=== PATIENT | female | born 1960 | race Caucasian/White ===

== ENCOUNTER 2021-04-06 19:42 | Emergency (ER) | payer BC, SELFPAY ==
[2021-04-06 19:53] VITALS: BP 141/73; PULSE 73; RESP 18; TEMP 36.6; O2SAT 98; BMI 22.9
[2021-04-06 20:15] VITALS: BP 145/75; PULSE 70; RESP 17; TEMP 36.8; O2SAT 98
[2021-04-06 20:45] VITALS: BP 153/71; PULSE 63; RESP 17; TEMP 36.8; O2SAT 98
--- NOTE | 2021-04-06 21:40 | HMH.EDGENADL ---
ED Disposition Clinical Impression: Back pain Qualifiers: Back pain location: low back pain Chronicity: acute Back pain laterality: right Sciatica presence: with sciatica Sciatica laterality: sciatica of right side Qualified Code(s): M54.41 - Lumbago with sciatica, right side Disposition: Home, Self-Care Condition on Discharge: Good Additional Instructions: Take the naproxen and muscle relaxers as prescribed by your PCP. Return if you develop the inability to walk, loss of bowel or bladder control, numbness or any other concerns. Follow up with your PCP. Your ultrasound in the ED was negative for blood clot in your leg. Referrals: Phill Barron [Primary Care Provider] - - Critical Care Critical Care Time: No Attestation: On 04/06/21, the high probability of a clinically significant, sudden or life threatening deterioration of the following system(s) required my full and direct attention, intervention and personal management. The time I documented below is in addition to time spent performing reported procedures but includes the following listed in this critical care notation. Medical Decision Making - Medical Records Medical records reviewed: Yes: I reviewed the patient's medical records. - [place] Inquiry Pt receiving controlled substance: No Vital Signs: 04/06/21 19:53 Temperature 97.8 F Temperature Source Oral Pulse Rate [Right Brachial] 73 Respiratory Rate 18 Blood Pressure [Right Arm] 141/73 H Blood Pressure Mean [Right Arm] 95 Blood Pressure Source [Right Arm] Automatic Cuff Blood Pressure Position [Right Arm] Sitting 02 Sat by Pulse Oximetry 98 Oxygen Delivery Method Room Air Orders (Tests/Meds): ED MEDICATIONS Discontinued Medications Generic Name Dose Route Start Last Admin Trade Name Liat PRN Reason Stop Dose Admin Hydrocodone Bitart/Acetaminophen 1 tab 04/06/21 20:29 04/06/21 21:25 Hydrocodone/Apap 5/325 Mg Tablet PO 04/06/21 20:30 1 tab ONCE ONE Administration Ketorolac Tromethamine 15 mg 04/06/21 20:29 04/06/21 21:25 Ketorolac 30mg/Ml Vial IV 04/06/21 20:30 15 mg ONCE ONE Administration Medical Decision Narrative: The patient is a 60 year old female who presents with back pain. The patient is awake, alert, hemodynamically stable, neurologically intact. No red flag symptoms for cauda equina including saddle anesthesia, fever, bowel or bladder incontinence. Abdomen is benign. No trauma, no concern for acute fracture. Low concern for DVT clinically (no risk factors, no swelling or tenderness to the calf on exam, no redness or palpable cord). However 4 point POC US for DVT was performed and showed compressible veins from femoral to popliteal. Patient was given norco 5 mg PO and toradol 15 mg IV for pain. Will have her follow up outpatient with her PCP. General Adult HPI - General Chief complaint: PAIN Stated complaint: severe pain in legs and back Time Seen by Provider: 04/06/21 19:54 Mode of Arrival: Family Vehicle Limitations: No Limitations Description of Symptoms (Recalled from ER Triage Doc. by RN): pt states she was doing some yard work on saturday, and noticed back and leg pain upon awakening. pt having severe pain in rle. pedal pulse, popliteal, dorsal pulses good. vss. skin color wnl. - History of Present Illness HPI narrative: The patient is a 60 year old female who presents to the ED with lower back pain radiating to the right leg. The patient states that she was doing some gardening work in her yard yesterday and developed lower back pain. It radiates down her right leg to her calf. It's worse when she moves or raises her leg. Denies numbness, loss of bowel or bladder control, fever, chest pain, vomiting. No leg swelling. No history of PE/DVT. She was concerned it was a blood clot so she came in. She saw her PCP who gave her naproxen, a muscle relaxer, a steroid shot, and oxycodone prescription. She has not tried the oxycodone yet. - Related Data
[2021-04-06 21:46] VITALS: BP 123/85; PULSE 81; RESP 17; TEMP 36.7; O2SAT 99
[2021-04-06 21:52] VITALS: BP 128/65; PULSE 73; RESP 17; O2SAT 98
== END 2021-04-06 21:54 | disposition home or self-care (01) ==
PROVIDERS: Emergency Provider Emergency Medicine; PCP Pediatrics
DX: M54.41 Lumbago with sciatica, right side (principal); Z88.2 Allergy status to sulfonamides
CPT/HCPCS: 99282

== ENCOUNTER → 2022-09-25 06:45 | Outpatient (CLI) | payer BC, OTHER, SELFPAY ==
--- NOTE | 2022-09-25 06:47 | CA_ITS ---
APPROVED REPORT EXAM: Comprehensive 2D, Doppler, and color-flow Echocardiogram Gauge Operator: Kayce Sherman RVT Ht: 5 ft 5 in Wt: 141lbs BSA: 1.71 BP: 156/97 mmHg Indications: CP 2D Dimensions LVOT 1.95 cm (M/F) 1.5-2.5 M-Mode Dimensions RVDd 2.50 cm (0.9-2.6) LA Diam 2.80 cm (1.9-4.0) LVDd 4.01 cm (3.5-5.7) Ao Diam 2.62 cm (2.0-3.7) LVDs 2.58 cm (3.5-5.7) IVSd 0.86 cm (0.6-1.1) PWd 0.46 cm (0.6-1.1) EF (Teich) 65.80% FS 35.70% EDV (Teich) 70.40 mL TAPSE 1.65 (<1.7) ESV (Teich) 24.10 mL LV Diastology E Decel Time 150.00 (160-240 msec) E/A Ratio 0.8 MED E' 8.70 (< 7 cm/sec) E'/MED E' Ratio 6.34 (>14) LAT E' 8.00 (<10 cm/sec) E/LAT E' Ratio 6.90 (>14) Aortic Valve AO Peak GR. 5.60 mmHg Mitral Valve MV E Max Tc. 55.00 (40-130 cm/s) MV A Velocity 71.00 (40-130 cm/s) E/A Ratio 0.78 MV Decel. Time 150.00 (160-240 ms) MV PHT 44.00 ms Pulmonary Valve PV Peak Velocity 67.00 (50-150 cm/s) Tricuspid Valve TR P. Velocity 258.00 cm/s RAP Estimate 10.00 mmHg RVSP 36.50 mmHg Left Ventricle Left atrium is mildly enlarged, left ventricle normal size mild concentric left ventricular hypertrophy, estimated ejection fraction 55% with no regional wall motion abnormality, grade 1 diastolic dysfunction seen without tissue Doppler evidence of raise left atrial pressure. Right Ventricle Right atrium and right ventricle are normal size and contractility. Aortic Valve Aortic valve is minimally thickened and fibrosed there is no aortic stenosis or aortic insufficiency. Mitral Valve Mitral valve is grossly normal, there is trace mitral regurgitation. Tricuspid Valve Tricuspid valve grossly normal, there is trace tricuspid regurgitation, calculated right ventricular systolic pressure 36 mmHg. Pulmonic Valve Pulmonic valve is poorly visualized. Great Vessels Aortic root is normal size. Inferior vena cava is poorly visualized. Pericardium No significant pericardial effusion noted. Conclusion 1. Mildly enlarged left atrium, normal left ventricular size, mild concentric left ventricular hypertrophy, estimated ejection fraction 55% with no regional wall motion abnormality, grade 1 diastolic dysfunction seen without tissue Doppler evidence of raise left atrial pressure. 2. Trace mitral and tricuspid regurgitation. 3. No significant pericardial effusion noted. 4. Inferior vena cava is poorly visualized. Electronically signed by : Damion River MD 09/25/2022 20:49:45
--- NOTE | 2022-09-25 06:47 | NM_ITS ---
APPROVED REPORT Exam: Nuclear Stress Test Indication: Chest pain Patient Location: Outpatient Stress Tech: Eufemia Francis [place] Tech:Liz Emery, ARRT, RT (R)(N) Ht: 5 ft 5 in Wt: 140 lbs Bra Size: 38C HR: 94 bpm BP: 154/93 mmHg BSA: 1.70 m2 TID: 1.32 BMI: 23.2 History: Chest pain Procedure: Patient exercised on Cayetano protocol 7:46 minutes and sec, resting heart rate 94 bpm, resting blood pressure 154/93 mmHg, with exercise maximum heart rate achived was 210 bpm which is 134 % of the maximum predicted heart rate and blood pressure was 233/103 mmHg. Test was stopped due to SOB. Patient denied any complaint of chest pain. Patient has Good exercise capacity, achieved 10.1 METs of workload on treadmill, the blood pressure response to exercise was Hypertensive. Electrocardiogram Resting electrocardiogram shows sinus rhythm nonspecific ST-T changes, with exercise there is less than 1.[address] segment depression noted from the baseline EKG. The EKG portion of the exercise Myoview was nondiagnostic due to baseline abnormal EKG. Cardiac Stress and Resting SPECT Images: Cardiac Stress and Resting SPECT images were obtained using technetium 99m Myoview 31.5 mCi stress and 10.90 mCi at rest. Gated SPECT for analysis of segmental wall motion and calculation of the ejection fraction also done. Prone images were also obtained. Cardiac stress and resting SPECT images show uniform myocardial activity without segmental perfusion abnormality, computer derived ejection fraction of 65% with no regional wall motion abnormality, right ventricle is normal size and contractility. However there is transient ischemic dilatation of left ventricle 1.32 noted. Conclusion: 1. The EKG portion of the exercise Myoview was nondiagnostic due to baseline abnormal EKG. Patient has good exercise capacity achieved 10.1 METs of workload on treadmill, the blood pressure response to exercise was hypertensive. There was no exercise-induced chest discomfort. 2. No scintigraphic evidence of reversible ischemia seen at this level of exercise, computer derived ejection fraction is 65% with no regional wall motion abnormality, right ventricle is normal size and contractility. There is transient ischemic dilatation of the left ventricle 1.32 noted. 3. Likely normal exercise Myoview study except for hypertensive blood pressure response, transient ischemic dilatation of the left ventricle with no perfusion defect is of unknown significance. Electronically signed by : Damion River MD 09/26/2022 06:38:55
--- NOTE | 2022-09-25 06:47 | CA_ITS ---
APPROVED REPORT Exam: Exercise Treadmill Technologist: Eufemia Francis, Ht: 5 ft 5 in Wt: 141 lbs BSA: 1.71 m2 HR: 80 bpm BP: 183/94 mmHg Rhythm: NSR, fusion beat, ST abn anterolaterally Indications: CP Medical History Medications: AmiTRIPTYINE,,,,, Stress Test Details Test: John HR Resting HR: 94 bpm Max Heart Rate (APMHR): 157.235024 bpm Max HR Achieved: 210 bpm Target HR (85% APMHR): 133.175667 bpm % of APMHR: 133.76 Recovery HR: 139 bpm BP Resting BP: 154/93 mmHg Max BP: 233/103 mmHg Recovery BP: 221.0/109.0 mmHg ECG Resting ECG: NSR, fusion beat, ST abn anterolaterally Clinical Exercise duration: 07:46 min Highest Stage Achieved: Exercise capacity: 10.1 METs Stress ECG Conclusion During john protocol pt exercised total of 7:46 into stage 3. No CP noted. Occasional PVC and PAC. Non diagnostic GXT due to baseline EKG abns. Myoview images reported separately. Test Summary REST . . . . . . . Sitting REST . . . . . . . Standing REST . . . . . . . Standing REST 04:39 0.0 0.0 94 . 154/ 93 . . Stage 1 01:00 10.0 1.7 95 . . . . Stage 1 02:00 10.0 1.7 120 . . . . Stage 1 03:00 10.0 1.7 113 . . . . Stage 2 01:00 12.0 2.5 120 . 178/ 80 . . Stage 2 02:00 12.0 2.5 127 . 178/ 80 . . Stage 2 03:00 12.0 2.5 132 . 194/ 74 . . Stage 3 01:00 14.0 3.4 137 . . . . Stage 3 01:46 14.0 3.4 142 . . . Stop exercise at 07:46 RECOVERY 01:00 0.0 0.0 139 . . . . RECOVERY 02:00 0.0 0.0 126 . 221/109 . . RECOVERY 03:00 0.0 0.0 111 . 221/109 . . RECOVERY 04:00 0.0 0.0 105 . 233/103 . . RECOVERY 05:00 0.0 0.0 106 . 215/ 96 . . RECOVERY 06:00 0.0 0.0 105 . 196/ 91 . . RECOVERY 07:00 0.0 0.0 101 . 185/ 87 . . RECOVERY 08:00 0.0 0.0 98 . 185/ 87 . . RECOVERY 09:00 0.0 0.0 97 . 162/ 87 . . RECOVERY 09:18 0.0 0.0 95 . 162/ 87 . . Electronically signed by : Damion River MD 09/26/2022 06:34:15
--- NOTE | 2022-09-25 08:53 | HMH.ITSHM ---
Current Home Medications as stated by this patient Jayla Bradford or compliance representative dealer. []AMITRIPTYLINE
== END ==
PROVIDERS: PCP Pediatrics; Visit Provider Nurse Practitioner
DX: R07.89 Other chest pain (principal); R94.31 Abnormal electrocardiogram [ECG] [EKG]
CPT/HCPCS: 78452; 93017; 93306; A9500; A9502

== ENCOUNTER 2022-09-27 08:16 | Day surgery (SDC) | payer BC, OTHER, SELFPAY ==
[2022-09-27] VITALS (11 sets, daily range): BP systolic 112–163; BP diastolic 69–93; PULSE 65–82; RESP 16–18; O2SAT 92–99; BMI 23.4
--- NOTE | 2022-09-27 07:10 | IR_ITS ---
APPROVED REPORT Patient Location: Outpatient PROCEDURES Left heart catheterization Left ventriculogram Selective coronary angiogram INDICATION Abnormal Myoview with transient left ventricular dilatation, Abnormal EKG with dynamic EKG changes across the anterior precordium, Angina pectoris Informed consent was obtained prior to the procedure. COMPLICATIONS None Estimated Blood Loss: Less than 10 mls TECHNIQUE One percent lidocaine used to anesthetize the right anterior aspect of the wrist. The right radial artery was accessed via the Seldinger technique. A 6 Ethiopian sheath was placed in the right radial artery. 2.5 mg of verapamil, 800 mcg of nitroglycerin, 1mg Lidocaine and 5000 U Heparin were given through the arterial sheath. The papa catheter was also used to perform left heart catheterization, left ventriculogram and selective coronary angiogram. At the end of the procedure the sheath was removed good hemostasis was achieved using Traclet band, patient was transferred to the postop holding area in stable condition. ANGIOGRAPHIC RESULTS The left main artery Normal The left anterior descending artery There is a large wraparound apex LAD. The proximal portion has a concentric 30 to 40% stenosis with mid vessel 10 to 20% stenoses The circumflex artery Is a large codominant vessel and normal The right coronary artery Codominant normal The DENNY ventriculogram reveals Normal 65% The left ventricular end-diastolic pressure 15 to 20 mmHg IMPRESSION Mild to moderate proximal disease and a large LAD which wraps the apex Normal ejection fraction Mildly elevated LVEDP consistent with diastolic dysfunction PLAN 1. At this point I favor medical management and recommend aggressive risk factor modification which should include an LDL less than 55 to be achieved with high intensity statin. Diet therapy will not provide sufficient LDL reduction to modify the disease process 2. Maximize antianginal medication 3. Daily aspirin therapy 4. Treatment of diastolic dysfunction 5. Close follow-up and manage angina pectoris. If patient continues to experience recalcitrant angina pectoris I would bring her back to the [facility] and proceed with FFR to the LAD with possible percutaneous revascularization. At this point medical management seems most appropriate Electronically signed by : Aiden Elise MD 09/27/2022 10:57:02
[2022-09-27 08:41] LABS: Basophils # 0.1 K/mm3 (0-0.2); Basophils % 0.6 % (0.1-2.0); Eosinophils # 0.1 K/mm3 (0.0-0.4); Eosinophils % 0.9 % (0.1-12.0); Hemoglobin 13.4 g/dL (12.2-16.2); Lymphocytes # 6.5 K/mm3 (0.7-4.5); Lymphocytes % 66.5 % (10-50); Mean Corpuscular HGB Conc 32.7 g/dL (31.8-35.4); Mean Corpuscular Hemoglobin 30.1 pg (27.0-31.2); Mean Platelet Volume 7.5 fl (7.4-10.4); Monocytes # 0.2 K/mm3 (0.1-1.0); Neutrophils % 30.1 % (37.0-80.0); Platelet Count 279 K/mm3 (142-424); Red Blood Count 4.45 M/mm3 (4.20-5.40); Red Cell Distribution Width 13.5 % (11.5-17.5); White Blood Count 9.8 K/mm3 (4.8-10.8)
[2022-09-27 08:52] LABS: MANUAL DIFFERENTIAL MANUAL DIFFERENTIAL (MANUAL DIFF)
[2022-09-27 09:00] LABS: Chloride 103 mmol/L (98-107); Sodium 141 mmol/L (136-145)
[2022-09-27 09:01] LABS: Potassium 4.3 mmoL/L (3.5-5.1)
[2022-09-27 09:04] LABS: Anion Gap 11.3 mEq/L (5-15); Blood Urea Nitrogen 13 mg/dl (7-17); Calcium 9.2 mg/dl (8.4-10.2); Carbon Dioxide 31 mmol/L (22.0-30.0); Creatinine Clearance Estimated 58 mL/min (50-200); Estimated Glomerular Filt Rate 101 ml/min (>60); GFR (African American) 122 ML/MIN (>60); Glucose 96 mg/dl (74-100)
[2022-09-27 09:54] LABS: Lymphocytes % 58 % (10-50); Monocytes % 4 % (2-9); Neutrophils % 38 % (42-76); Total Cells Counted 100
[2022-09-27 09:55] LABS: Platelet Estimate Normal; RBC Morphology Normal
== END 2022-09-27 13:51 | disposition home or self-care (01) ==
PROVIDERS: Nurse Practitioner; PCP Pediatrics; Visit Provider Internal Medicine
DX: R94.31 Abnormal electrocardiogram [ECG] [EKG] (principal); R94.39 Abnormal result of other cardiovascular function study; I25.118 Atherosclerotic heart disease of native coronary artery with other forms of angina pectoris; E78.5 Hyperlipidemia, unspecified
CPT/HCPCS: 36415; 80048; 85007; 85025; 93458; 99152; C1725; C1769; J1644; Q9967

== ENCOUNTER → 2023-04-09 09:09 | Outpatient (CLI) | payer BC, OTHER, SELFPAY ==
[2023-04-09 09:57] LABS: Basophils # 0.1 K/mm3 (0-0.2); Basophils % 0.7 % (0.1-2.0); Eosinophils # 0.1 K/mm3 (0.0-0.4); Eosinophils % 1.6 % (0.1-12.0); Hematocrit 39.4 % (37.0-47.0); Hemoglobin 12.9 g/dL (12.2-16.2); Lymphocytes # 5.5 K/mm3 (0.7-4.5); Lymphocytes % 65.6 % (10-50); Mean Corpuscular HGB Conc 32.8 g/dL (31.8-35.4); Mean Corpuscular Volume 91.5 fl (81-99); Mean Platelet Volume 7.9 fl (7.4-10.4); Monocytes # 0.2 K/mm3 (0.1-1.0); Monocytes % 2.6 % (1.7-9.3); Neutrophils # 2.5 K/mm3 (1.8-7.8); Neutrophils % 29.5 % (37.0-80.0); Platelet Count 247 K/mm3 (142-424); Red Cell Distribution Width 13.5 % (11.5-17.5); White Blood Count 8.4 K/mm3 (4.8-10.8)
[2023-04-09 10:06] LABS: MANUAL DIFFERENTIAL MANUAL DIFFERENTIAL (MANUAL DIFF)
[2023-04-09 10:36] LABS: Eosinophils % 2 % (0-3); Lymphocytes % 62 % (10-50); Monocytes % 6 % (2-9); Neutrophils % 30 % (42-76); Platelet Estimate Normal; RBC Morphology Normal; Total Cells Counted 100
[2023-04-09 10:48] LABS: Alanine Aminotransferase 38 U/L (12-78); Albumin Level 4.3 g/dl (3.5-5.0); Alkaline Phosphatase 97 U/L (38-126); Anion Gap 14.2 mEq/L (5-15); Aspartate Amino Transferase 36 U/L (14-36); Bilirubin,Indirect 0.5 mg/dL (0.0-0.9); Bilirubin,Total 0.5 mg/dl (0.2-1.3); Bilirubin,Unconjugated 0.7 mg/dL (0.0-1.1); Blood Urea Nitrogen 11 mg/dl (7-17); Calcium 8.9 mg/dl (8.4-10.2); Carbon Dioxide 31 mmol/L (22.0-30.0); Chloride 100 mmol/L (98-107); Chol/HDL Ratio 2.5 (1-3.5); Cholesterol 132 mg/dl (140-200); Estimated Glomerular Filt Rate 101 ml/min (>60); GFR (African American) 122 ML/MIN (>60); Glucose 88 mg/dl (74-100); HDL Cholesterol 53 mg/dl (40-60); Magnesium 2.1 mg/dl (1.6-2.3); Potassium 4.2 mmoL/L (3.5-5.1); Sodium 141 mmol/L (136-145); Total Protein,Serum 6.5 g/dl (6.3-8.2); Triglycerides 88 mg/dl (30-150); VLDL Cholesterol 18 mg/dL (0-40)
[2023-04-09 10:59] LABS: Direct LDL Cholesterol 61.78 mg/dL (100-129)
[2023-04-09 11:04] LABS: Free T4 (Free Thyroxine) 0.82 ng/dl (0.78-2.19)
[2023-04-09 11:19] LABS: Thyroid Stimulating Hormone 0.86 uIU/mL (0.465-4.68)
== END ==
PROVIDERS: PCP Pediatrics; Visit Provider Physician Assistant
DX: I25.10 Atherosclerotic heart disease of native coronary artery without angina pectoris (principal); I51.89 Other ill-defined heart diseases; R94.31 Abnormal electrocardiogram [ECG] [EKG]
CPT/HCPCS: 36415; 80048; 80061; 80076; 83735; 84439; 84443; 85007; 85025

== ENCOUNTER 2025-09-24 08:01 | Emergency (ER) | payer MEDICARE, OTHER, SELFPAY ==
[2025-09-24] VITALS (10 sets, daily range): BP systolic 142–203; BP diastolic 96–127; PULSE 67–93; RESP 16–18; TEMP 36.8; O2SAT 97–100; BMI 23.3
--- OUTSIDE RECORDS SUMMARY | 2025-09-24 08:10 | XMS_ITS | Encounter Summary ---
[facility] Address [address] [place] [address] Care Team Providers Care Chip Drier Name Role Phone Phill Barron MD Primary Care Provider [phone] Encounter Details Date Type Department Care Team (Late st Contact Info) Description 07/29/2025 Telephone [facility] [address] [place] [address] [place] [id number] Phill Barron MD [address] [place] [address] Social History Tobacco Use Types Packs/Day Years Used Date Smoking Tobacco: Never Smokeless Tobacco: Never Alcohol Use Standard Drinks/Week Comments Never 0 (1 standard drink = 0.6 oz pur e alcohol) VERY RARE;SOCIAL PHQ-2 Answer Date Recorded Retired PHQ-9: Brief Depression Severity Measure Score 0 04/11/2023 PHQ-2 Answer Date Recorded Patient Health Questionnaire-2 Score 0 12/25/2024 Comments No Sex and Gender Information Value Date Recorded Sex Assigned at Not on file Legal Sex Female 10:15 AM EDT Gender Identity Not on file Sexual Orientation Not on file documented as of this encounter Miscellaneous Notes * Telephone Encounter - Phill Barron MD - 07/29/2025 4:07 PM EDT Patient's blood pressure has been getting a little bit lower in the upper 90s to low 100s range systolic, over the last couple weeks, and she is only taking carvedilol 3.125 mg twice daily. As such recommend stopping the carvedilol, and monitor blood pressure regularly encouraged good hydration. Advise if not improving documented in this encounter Plan of Treatment Not on file documented as of this encounter Visit Diagnoses Not on filedocumented in this encounter Care Teams Chip Drier Relationship Specialty Start Date End Date Phill Barron MD [address] [id number] PCP - General Internal Medicine 06/26/22 documented as of this encounter
--- OUTSIDE RECORDS SUMMARY | 2025-09-24 08:10 | XMS_ITS | Clinical Summary ---
[facility] Address [address] [place] [address] Care Team Providers Care Bundle Wrapper Name Role Phone Phill Barron MD Primary Care Provider [phone] Allergies Active Allergy Reactions Criticality Noted Date Comments Sulfamethoxazole-Trimethoprim Hives Medium 2021 Cephalexin Hives Medium 07/13/2022 Sulfamethoxazole GI Intolerance 10/10/2022 Trimethoprim GI Bleeding 10/10/2022 Medications Vitamin D, Cholecalciferol, 25 MCG (1000 UT) capsuleIndications: Vitamin D deficiency Take 1 capsule by mouth Daily. 90 capsule 1 2 Active aspirin 81 MG EC tablet Take 1 tablet by mouth Daily. Active naproxen (NAPROSYN) 375 MG tabletIndications:C ervicalgia Take 1 tablet by mouth 2 (Two) Times a Day As Needed for Mild Pain. 60 tablet 1 4 Active cetirizine (zyrTEC) 10 MG tablet Take 1 tablet by mouth Daily. 90 tablet 1 5 Active amitriptyline (ELAVIL) 50 MG tabletIndications:T rigeminal neuralgia Take 1 tablet by mouth Every Night. 90 tablet 3 5 Active atorvastatin (LIPITOR) 40 MG tabletIndications:M ixed hyperlipidemia Take 1 tablet by mouth Every Night. 90 tablet 3 5 Active Active Problems Problem Noted Date Diagnosed Date Essential hypertension 12/25/2024 Assessment & Plan (04/14/2025 12:11 PM EDT): Mild increased blood pressure 12/25/2024 verified at home where she was running down the 130s over mid 80s. As such we added carvedilol 3.125 mg twice daily, if needing further blood pressure manage in the future could consider adding DAMIAN inhibitor or ARB, again for cardiovascular benefit. She has done well with blood pressure now good range in the low 120s over upper 70s. Recommend monitoring blood pressure regularly, advise any symptom concern. Reassess at follow-up visits. Assessment & Plan (02/03/2025 12:46 PM EST): Mild increased blood pressure today 12/25/2024 verified at home where she is running down the 130s over mid 80s. As such she could potentially tolerate adding beta-nela in context of cardiovascular history, add carvedilol 3.125 mg twice daily, if needing further blood pressure manage in the future could consider adding DAMIAN inhibitor or ARB, again for cardiovascular benefit. Recommend monitoring blood pressure regularly, advise any symptom concern. Reassess at 3-month follow-up visit. Orders: carvedilol (Coreg) 3.125 MG tablet; Take 1 tablet by mouth 2 (Two) Times a Day With Meals. Spondylolisthesis of cervical region 12/25/2024 Assessment & Plan (04/14/2025 12:09 PM EDT): Please refer to assessment plan under cervicalgia for full details, but 04/03/2024 x-ray of the cervical spine at [facility], revealing moderate to significant multilevel degenerative changes diffusely, and she has a mild retrolisthesis of C6 on C7 transverse with slight shift in alignment. Assessment & Plan (02/03/2025 12:46 PM EST): Please refer to assessment plan under cervicalgia for full details, but 04/03/2024 x-ray of the cervical spine at [facility], revealing moderate to significant multilevel degenerative changes diffusely, and she has a mild retrolisthesis of C6 on C7 transverse with slight shift in alignment. In context of recent catching sensation with extension of the neck lower cervical level, and pain associated despite conservative management we will pursue MRI imaging to clarify as I feel her could be an association between these processes. Management per results and consideration referral to specialist pending those results. Lymphadenitis, acute 04/07/2024 Assessment & Plan (04/21/2024 9:50 AM EDT): Patient had noted a small bump in the right lower neck region last night, unsure if it has been present further. As assessed 04/09/2024, on exam it was consistent with a borderline enlarged lymph node although it is in the supraclavicular region, size is about 3/4 x 1 cm, mobile within the subcutaneous tissues, and patient has no constitutional decline including no night sweats, fevers, chills, unexplained weight loss, headaches, body aches. Plan was initially to monitor for couple weeks, with increased stressors, patient wanted to go ahead and reassess further and we obtained reassuring blood work including normal CBC, ESR, CRP, and EBV and CMV evaluation is negative for acute process, although previous infection noted. Additional chest x-ray negative and ultrasound of the right neck showed a normal variant 6 mm lymph node. Since that time it has decreased in size and essentially resolved. As such no further investigation necessary. Advise any recurrence. Assessment & Plan (04/09/2024 9:48 AM EDT): Patient had noted a small bump in the right lower neck region last night, unsure if it has been present further. On exam it appears to be most consistent with a borderline enlarged lymph node although it is in the supraclavicular region, size is about 3/4 x 1 cm, mobile within the subcutaneous tissues, and patient has no constitutional decline including no night sweats, fevers, chills, unexplained weight loss, headaches, body aches. She has not clearly been ill in the last few weeks, nor has she had any localized skin infection around the area of lymph node. At this time we discussed pros and cons of assessing today or giving this a little further time as this was just noted yesterday. Plan is to monitor this closely over the next couple weeks, and if it is not decreasing in size or if it is getting larger, plan to then obtain some further investigations including laboratory work with CBC, ESR, CRP, and probable mono and CMV evaluation. Additional consideration of chest x-ray and ultrasound the right neck to assess further. Advise any worsening interim. Addendum as of 04/09/2024, patient just preferred to go ahead and do the investigations as noted above and as such they have been ordered. Age-related osteoporosis wit hout current pathological fracture 04/03/2024 Assessment & Plan (02/03/2025 12:46 PM EST): DEXA scan as obtained 01/06/2024 at [facility] reveals bilateral proximal femurs with corresponding T-score of -2.6 which is consistent with osteoporosis which is a 9.4% worsening compared to 05/23/2015. Lumbar spine L1-L4 at T-score of -2.8 also consistent with osteoporosis which is worsening at 5.2% compared to previous in 2014. As such estimated 10-year probability of major osteoporotic fracture 14.7% and 10-year probability hip fracture 3.8%. Based on these findings, recommendation I had recommended to initiate bisphosphonate with alendronate 70 mg weekly. Patient initiated but then did some reading, prefers to hold off on the alendronate using [id number] supplements. Advised if she changes mind for the alendronate, otherwise continue importance of vitamin D and calcium daily. Recheck DEXA scan in approximately January 2026. Assessment & Plan (06/26/2024 11:04 AM EDT): DEXA scan as obtained 01/06/2024 at [facility] reveals bilateral proximal femurs with corresponding T-score of -2.6 which is consistent with osteoporosis which is a 9.4% worsening compared to 05/23/2015. Lumbar spine L1-L4 at T-score of -2.8 also consistent with osteoporosis which is worsening at 5.2% compared to previous in 2014. As such estimated 10-year probability of major osteoporotic fracture 14.7% and 10-year probability hip fracture 3.8%. Based on these findings, recommendation initiate bisphosphonate with alendronate 70 mg weekly. Patient initiated but then did some reading, prefers to hold off on the alendronate using [id number] supplements. Advised if she changes mind for the alendronate, otherwise continue importance of vitamin D and calcium daily. Recheck DEXA scan in 2 to 3 years time. Assessment & Plan (04/03/2024 12:16 PM EDT): DEXA scan as obtained 01/06/2024 at [facility] reveals bilateral proximal femurs with corresponding T-score of -2.6 which is consistent with osteoporosis which is a 9.4% worsening compared to 05/23/2015. Lumbar spine L1-L4 at T-score of -2.8 also consistent with osteoporosis which is worsening at 5.2% compared to previous in 2015. As such estimated 10-year probability of major osteoporotic fracture 14.7% and 10-year probability hip fracture 3.8%. Based on these findings, recommendation initiate bisphosphonate with alendronate 70 mg weekly. Patient initiated but then did some reading and has tried some [id number]-[id number] supplements. This includes vitamin D and calcium which I recommended the benefit of taking but have advised that [id number] supplements will not make significant improvement in the bone density and I recommend resuming alendronate 70 mg weekly. She will consider. Recheck in 2 to 3 years time. Need for vaccination 12/27/2023 Colon cancer screening 12/27/2023 Assessment & Plan (12/27/2023 9:15 AM EST): Negative Cologuard 03/10/2021, reordered today in anticipation of March 2024 for her 3-year follow-up. Coronary artery disease invo lving [place] coronary artery of [place] heart without angina pectoris 12/27/2023 Assessment & Plan (04/14/2025 12:11 PM EDT): Modest pattern is diagnosed through catheterization by Dr. Elise at [facility] in September 2022. Evaluation included echocardiogram with mildly enlarged left atrium, mild concentric left ventricular hypertrophy but normal EF. Left heart cath with mild to moderate proximal disease but no narrowing requiring intervention, with recommendation for risk factor modification. Based on these diagnoses, continue aspirin 81 mg daily, continue statin, and with some modest increased blood pressure as of 12/25/2024 I will add low-dose beta-nela with carvedilol 3.125 mg twice daily. If further need for blood pressure manage in future we could add DAMIAN inhibitor or ARB which would be beneficial for her cardiovascular diagnosis. EKG 12/25/2024 nonspecific changes which are stable compared to 12/27/2023. She continues to do well with no symptoms of concern as of 04/14/2025. Keep follow-up with Dr. Elise, who she last saw October 2024 with 6-month follow-up recommended. Assessment & Plan (02/03/2025 12:46 PM EST): Modest pattern is diagnosed through catheterization by Dr. Elise at [facility] in September 2022. Evaluation included echocardiogram with mildly enlarged left atrium, mild concentric left ventricular hypertrophy but normal EF. Left heart cath with mild to moderate proximal disease but no narrowing requiring intervention, with recommendation for risk factor modification. Based on these diagnoses, continue aspirin 81 mg daily, continue statin, and with some modest increased blood pressure as of 12/25/2024 I will add low-dose beta-nela with carvedilol 3.125 mg twice daily. If further need for blood pressure manage in future we could add DAMIAN inhibitor or ARB which would be beneficial for her cardiovascular diagnosis. EKG today 12/25/2024 nonspecific changes which are stable compared to 12/27/2023. Keep follow-up with Dr. Elise, who she last saw October 2024 with 6-month follow-up recommended. Orders: ECG 12 Lead carvedilol (Coreg) 3.125 MG tablet; Take 1 tablet by mouth 2 (Two) Times a Day With Meals. Assessment & Plan (06/26/2024 11:00 AM EDT): Modest pattern is diagnosed through catheterization by Dr. Elise at [facility] in September 2022. Evaluation included echocardiogram with mildly enlarged left atrium, mild concentric left ventricular hypertrophy but normal EF. Left heart cath with mild to moderate proximal disease but no narrowing requiring intervention, with recommendation for risk factor modification. Based on that review I would recommend initiating aspirin 81 mg daily, continue statin, but as blood pressure does not require medicine, would not initiate DAMIAN inhibitor or ARB, or beta-nela, but would have low threshold to add to lower doses in future if blood pressure allows. No symptoms of concern Assessment & Plan (12/27/2023 9:23 AM EST): Modest pattern is diagnosed through catheterization by Dr. Elise at [facility] in September 2022. Evaluation included echocardiogram with mildly enlarged left atrium, mild concentric left ventricular hypertrophy but normal EF. Left heart cath with mild to moderate proximal disease but no narrowing requiring intervention, with recommendation for risk factor modification. Based on that review I would recommend initiating aspirin 81 mg daily, continue statin, but as blood pressure does not require medicine, would not initiate DAMIAN inhibitor or ARB, or beta-nela, but would have low threshold to add to lower doses in future if blood pressure allows. No symptoms of concern Cervicalgia 09/26/2023 Assessment & Plan (04/14/2025 12:10 PM EDT): Initially evaluated September 2023, classic presentation of a right upper neck cervicalgia pattern, potentially exacerbated with sleeping on this wrong. No radiculopathy. Pursuit of conservative management initially but some waxing waning since which she initiated daycare teacher early 2023 for about 5 or 6 weeks with equivocal benefit, and as such we had initiated therapy which she started January 2024 and completed about 5 or 6 weeks of 2 times weekly sessions with notable benefit although some still waxing and waning pattern subsequently. With this persistence on 04/03/2024, we obtained x-ray of the cervical spine at [facility], revealing moderate to significant multilevel degenerative changes diffusely, and she has a mild retrolisthesis of C6 on C7 transverse with slight shift in alignment. She had thought to be doing better, and in some regards to some of the more muscular neck pain is still doing better but as of October 2024, she had some aggravation where it felt if she extended her neck there is a bit of a catching sensation of the lower mid cervical spinal level that causes pain. This was persisting not improved as such pursuit of MRI of the cervical spine 12/31/2024 at [facility], revealing diffuse degenerative changes of the cervical spine and upper thoracic spine, with multilevel listhesis. She does have a bit of bony edema along the endplates of the lower cervical spine worse on the right side at C6- C7. In general there is some diffuse vertebral body height loss, significant canal and foraminal narrowing diffusely, as delineated in more detail in the full report. With these findings she was referred to neurosurgery where she saw Dr. Lewis on 01/08/2025 who did repeat x-ray of the cervical spine with flexion-extension views which showed stability in her findings and as such recommended continued conservative treatment. She has generally been doing better since that time with improved pattern. Advise any recurrence or worsening. Assessment & Plan (02/03/2025 12:46 PM EST): Initially evaluated September 2023, classic presentation of a right upper neck cervicalgia pattern, potentially exacerbated with sleeping on this wrong. No radiculopathy. Pursuit of conservative management initially but some waxing waning since which she initiated daycare teacher early 2023 for about 5 or 6 weeks with equivocal benefit, and as such we had initiated therapy which she started January 2024 and completed about 5 or 6 weeks of 2 times weekly sessions with notable benefit although some still waxing and waning pattern subsequently. With this persistence on 04/03/2024, we obtained x-ray of the cervical spine at [facility], revealing moderate to significant multilevel degenerative changes diffusely, and she has a mild retrolisthesis of C6 on C7 transverse with slight shift in alignment. She had thought to be doing better, and in some regards to some of the more muscular neck pain is still doing better but as of October 2024, she had some aggravation where now she feels if she extends her neck there is a bit of a catching sensation of the lower mid cervical spinal level that causes pain. This is persisting and has not improved. No associated radiculopathy. Nonetheless with this progression context previous x-ray imaging showing retrolisthesis I think they could be associated we will obtain MRI imaging with management per results. Pending those results consideration of referral to specialist. Orders: MRI Cervical Spine Without Contrast; Future Assessment & Plan (06/26/2024 11:00 AM EDT): Initially evaluated September 2023, classic presentation of a right upper neck cervicalgia pattern, potentially exacerbated with sleeping on this wrong. No radiculopathy. Pursuit of conservative management initially but some waxing waning since which she initiated daycare teacher early 2023 for about 5 or 6 weeks with equivocal benefit, and as such we had initiated therapy which she started January 2024 and completed about 5 or 6 weeks of 2 times weekly sessions with notable benefit although some still waxing and waning pattern subsequently. With this persistence on 04/03/2024, we obtained x-ray of the cervical spine at [facility], revealing moderate to significant multilevel degenerative changes diffusely, and she has a slight retrolisthesis of C6 on C7 transverse with slight shift in alignment but this was noted to be minimal and overall nonconcerning. Since that time she is done well with conservative management, naproxen use as needed, and currently declines further evaluation. At this point she is feeling she is doing well enough that she declines desire to pursue MRI imaging and/or orthopedic referral, but if that were to persist or recur we could reconsider in the near future. Assessment & Plan (04/21/2024 9:48 AM EDT): Initially evaluated September 2023, classic presentation of a right upper neck cervicalgia pattern, potentially exacerbated with sleeping on this wrong. No radiculopathy. Pursuit of conservative management initially but some waxing waning since which she initiated daycare teacher early 2023 for about 5 or 6 weeks with equivocal benefit, and as such we had initiated therapy which she started January 2024 and completed about 5 or 6 weeks of 2 times weekly sessions with notable benefit although some still waxing and waning pattern subsequently. With this persistence on 04/03/2024 we obtain x-ray of the cervical spine at [facility], revealing moderate to significant multilevel degenerative changes diffusely, and she has a slight retrolisthesis of C6 on C7 transverse with slight shift in alignment but this was noted to be minimal and overall nonconcerning. Since that time last week we have initiated conservative management including naproxen 375 mg twice daily that she just last couple weeks and she feels this has helped decrease the pattern down more regularly discussed using the naproxen 375 mg twice daily for another 10 to 14 days and if she continues to do well transition to as needed use. Caution flare of her reflux, recommend using omeprazole when she is using the naproxen regularly. At this point she is feeling she is doing well enough that she declines desire to pursue MRI imaging and/or orthopedic referral, but if that were to persist or recur we could reconsider in the near future. Assessment & Plan (04/07/2024 9:30 AM EDT): Initially evaluated September 2023, classic presentation of a right upper neck cervicalgia pattern, potentially exacerbated with sleeping on this wrong. No radiculopathy. Pursuit of conservative management initially but some waxing waning since which she initiated daycare teacher early 2023 for about 5 or 6 weeks with equivocal benefit, and as such we had initiated therapy which she started January 2024 and completed about 5 or 6 weeks of 2 times weekly sessions and she does feel that the therapy has noted improved pain from about a 9/10 down to a 3/10 initially although it is gradually increased over the preceding couple weeks without doing home therapy. With this persistence on 04/03/2024 we obtain x-ray of the cervical spine at [facility], revealing moderate to significant multilevel degenerative changes diffusely, and she has a slight retrolisthesis of C6 on C7 transverse with slight shift in alignment but this is minimal and overall nonconcerning. Overall no acute process, no specific intervention necessary based on imaging. Since that time last week we have initiated conservative management including naproxen 375 mg twice daily for the next 7 days, treated with omeprazole 20 mg daily to avoid aggravation of GERD, and she does feel that the neck is starting to feel little bit better. The plan is if she is not seeing significant improvement in the following week or 2 she will call we will plan referral orthopedic for further investigations. Advised concerns. Assessment & Plan (04/03/2024 12:18 PM EDT): Initially evaluated September 2023, classic presentation of a right upper neck cervicalgia pattern, potentially exacerbated with sleeping on this wrong. No radiculopathy. Pursuit of conservative management initially but some waxing waning since which she initiated daycare teacher early 2023 for about 5 or 6 weeks with equivocal benefit, and as such we had initiated therapy which she started January 2024 and completed about 5 or 6 weeks of 2 times weekly sessions and she does feel that the therapy has noted improved pain from about a 9/10 down to a 3/10 initially although it is crept back up over the last couple weeks without doing home therapy. This time with persistence I discussed is beneficial to obtain x-ray of the cervical spine with managed per results but otherwise she would like to try to resume her home therapy more regular if she is not seeing improvement again over the next couple weeks. Additionally I recommended initiate naproxen 3 seven 5 mg twice daily for the next 7 days, treated with omeprazole 20 mg daily to avoid aggravation of GERD, and if she does well then transition off to as needed use. Additionally, we could consider referral to orthopedic for further investigations. Advised concerns. Assessment & Plan (12/27/2023 9:35 AM EST): Quite classic presentation of a right upper neck cervicalgia pattern, potentially exacerbated with sleeping on this wrong. No radiculopathy. Status post evaluation 09/26/2023 with benefit of conservative management initially but some waxing waning since which she has initiated daycare teacher. If that is nonresponsive she will call and we will set up physical therapy to evaluate and treat for what is very much consistent with a soft tissue injury pattern. If there is progression or worsening could consider x-ray imaging. quickly. Advised concerns. Assessment & Plan (09/26/2023 12:05 PM EDT): Quite classic presentation of a right upper neck cervicalgia pattern, potentially exacerbated with sleeping on this wrong a couple months ago. No radiculopathy. Waxing waning but overall lingering pattern, which is likely due to ongoing use of the neck. With this persistence I would like to initiate prednisone 10 mg tablet 3 tablets daily x5 days followed by naproxen 375 mg twice daily for another 7 to 10 days to help decrease inflammation trigger and see if that can help break the cycle in addition to heating pad and light stretching. Due to persistence I would like to set up physical therapy to evaluate and treat to see if this can help transition more quickly. Advised if not improving. Vertigo 08/15/2023 Assessment & Plan (08/15/2023 11:40 AM EDT): She does have new onset of what appears to be vertigo. Patient reports on 2 separate occasions in the last 2 weeks she has experienced room spinning type symptoms. The first episode occurred while she was cleaning her house, second episode occurring while driving her grandson to school. She notes the episode lasted only a few seconds with quick resolution. There was no accompanying nausea, vomiting, headache or chest pain. She does note with one episode there was a slight blurring of her vision. She has also noted some right ear discomfort in correlation with the symptoms. Onset does not seem to be particularly positional in nature as 1 episode happened when driving. On physical exam she is noted to have significant fluid levels behind TMs bilaterally, likely result of allergic rhinitis, associated pale swollen turbinates bilaterally. She has checked her blood pressure during these episodes without deviation from her normal. -Advised to resume daily Zyrtec and Flonase use as she has in the past. If no resolution she is to report for further evaluation with Dr. Barron Acute cystitis 07/11/2023 Assessment & Plan (07/11/2023 1:47 PM EDT): Classic presentation of acute cystitis with suprapubic discomfort, urinary frequency, urgency and sense of incomplete voiding, lingering on and off for last 4 to 5 days. No fevers, no discharge or itching associated. No frequent historical pattern of UTI. Initiate nitrofurantoin 100 mg twice daily x 7 days. Push fluids, consider cranberry juice, she can also use [id number] Azo as needed. Advised if not improving, if persisting or worsening despite this, she would benefit from evaluation and urinalysis/culture. Prediabetes 04/11/2023 Assessment & Plan (04/14/2025 12:14 PM EDT): Diagnosis with hemoglobin A1c of 5.8% at 07/18/2022 blood work. Hemoglobin A1c continued in good range today 04/14/2025 at 5.7%, previous 12/25/2024 at 5.6%, 5.6%, 5.6%, 5.7% 04/11/2023. With good stability we will plan to recheck it when she follows up in 8 months for a wellness visit. Continue healthy diet, exercise and benefits of even modest weight loss. Caution polyuria polydipsia sign of progression of diabetes. Advise concerns. Assessment & Plan (02/03/2025 12:46 PM EST): Diagnosis with hemoglobin A1c of 5.8% at 07/18/2022 blood work. Hemoglobin A1c continued in good range today 12/25/2024 at 5.6%, previous 5.6%, 5.6%, 5.7% 04/11/2023. Monitor every 6 months. Continue healthy diet, exercise and benefits of even modest weight loss. Caution polyuria polydipsia sign of progression of diabetes. Orders: POC Glycosylated Hemoglobin (Hb A1C) POC Glucose, Blood Assessment & Plan (06/26/2024 11:01 AM EDT): New diagnosis with hemoglobin A1c of 5.8% at 07/18/2022 blood work. Hemoglobin A1c continued in good range at 5.6%, previous 5.6%, previous 5.7% 04/11/2023. Monitor every 6 months. Continue healthy diet, exercise and benefits of even modest weight loss. Assessment & Plan (12/27/2023 9:24 AM EST): New diagnosis with hemoglobin A1c of 5.8% at 07/18/2022 blood work. Hemoglobin A1c continued modest improved to 5.6%, previous 5.7% 04/11/2023. Monitor every 6 months. Continue healthy diet, exercise and benefits of even modest weight loss. Assessment & Plan (08/15/2023 11:41 AM EDT): Initially diagnosed with A1c of 5.8% in July 2022. Since that time she has worked on diet modification and increased exercise with benefit of improved A1c, 5.6% in office today Assessment & Plan (04/11/2023 10:35 AM EDT): New diagnosis with hemoglobin A1c of 5.8% at 07/18/2022 blood work. As we do not have the [id number]-lo-kkwa affect hemoglobin A1c today we will obtain venous hemoglobin A1c with results the next day or 2. Management per results. Continue healthy diet, exercise and benefits of even modest weight loss. Gastroesophageal reflux disease without esophagi tis 04/11/2023 Assessment & Plan (04/14/2025 12:12 PM EDT): Generally intermittent and relatively infrequent pattern of GERD, without ever any sticking sensation in the throat. Using omeprazole as needed but infrequently. Continue reflux precautions. No new concerns as of 04/14/2025. Assessment & Plan (02/03/2025 12:46 PM EST): Generally intermittent and relatively infrequent pattern of GERD, without ever any sticking sensation in the throat. Using omeprazole as needed but infrequently. Continue reflux precautions. No new concerns as of 12/25/2024. Assessment & Plan (06/26/2024 11:00 AM EDT): Generally intermittent and relatively infrequent pattern of GERD, without ever any sticking sensation in the throat. Using omeprazole as needed but infrequently. Continue reflux precautions. Advise concerns. Assessment & Plan (04/21/2024 9:48 AM EDT): Generally intermittent and relatively infrequent pattern of GERD, without ever any sticking sensation in the throat. Nonetheless with recent increase use of naproxen for neck pain we have been using omeprazole regularly with benefit. Using for the next couple weeks while she completes the naproxen dosing, then transition back to as needed dosing. Continue reflux precautions. Advise concerns. Assessment & Plan (04/07/2024 9:30 AM EDT): Generally infrequent pattern of GERD, without ever any sticking sensation in the throat. With use of NSAIDs the last week related to neck pain she has been using omeprazole and that has been keeping heartburn symptoms at bay, she does not have any current concerns, no sticking sensation in throat. When she completes the regular use of naproxen she can transition off the omeprazole to as needed use. Continue reflux precautions. Advise concerns. Assessment & Plan (04/03/2024 12:19 PM EDT): Generally infrequent pattern of GERD, without ever any sticking sensation in the throat. With use of NSAIDs she has some flare and as I would like her to use naproxen for the next week or so regular, initiate omeprazole at the same time and if she weans off she can transition to as needed use of omeprazole. Continue reflux precautions. Advise concerns. Assessment & Plan (12/27/2023 9:16 AM EST): Infrequent pattern, good response to use uokv-evn-[id number] antacids on an infrequent basis. No sticking sensation in throat. Advise any increase pattern. Reflux precautions discussed. Assessment & Plan (08/15/2023 12:39 PM EDT): Currently well controlled with blkv-xsn-qigwrts acid acids Assessment & Plan (04/11/2023 10:04 AM EDT): As a visit 04/11/2023, she is now manifesting a very clear pattern of reflux although fairly infrequent and well controlled with kuwr-hkm-zqtomxa antacids. Once every few weeks or months she might have some epigastric gnawing and burning sensation with bad taste in mouth that responds to htfm-wug-[id number] treatment. No sticking sensation in the throat. Continue treatment unchanged but if it came more persistent we could consider more regular treatment of medicine. Advise concerns. Vitamin D deficiency 04/11/2023 Assessment & Plan (04/14/2025 12:15 PM EDT): Vitamin D 25-hydroxy level improved with replacement to 49.0 on 12/25/2024, previous 21.3 on 12/27/2023, previous 26.9 on 07/18/2022. Continue vitamin D 1000 units daily, monitor yearly. Assessment & Plan (02/03/2025 12:46 PM EST): Vitamin D 25-hydroxy level modestly low at 21.3 on 12/27/2023, previous 26.9 on 07/18/2022. Continue resumption of vitamin D 1000 units daily since that time, monitor yearly. Recheck vitamin D 25-hydroxy with blood work 12/25/2024, management per results. Orders: Vitamin D,25-Hydroxy; Future Vitamin D,25-Hydroxy Assessment & Plan (06/26/2024 11:03 AM EDT): Vitamin D 25-hydroxy level modestly low at 21.3 on 12/27/2023, previous 26.9 on 07/18/2022. Continue resumption of vitamin D 1000 units daily since that time, monitor yearly. Assessment & Plan (12/27/2023 9:26 AM EST): Modestly low vitamin D level at 26.9 on 07/18/2022. She has initiated vitamin D 1000 units daily since that time, check a vitamin D with blood work today 12/27/2023. Assessment & Plan (08/15/2023 11:38 AM EDT): Patient noted to have modestly low vitamin D level on routine labs 1 year ago, 26.9. Since that time she has been taking vitamin D 1000 units daily. She plans to pursue her yearly blood work when following up with regular PCP Dr. Phill Barron in October. Assessment & Plan (04/11/2023 10:36 AM EDT): Modestly low vitamin D level at 26.9 on 07/18/2022. She has initiated vitamin D 1000 units daily since that time, plan to recheck with yearly blood work. Sore throat (viral) 09/11/2022 Assessment & Plan (09/11/2022 9:32 AM EDT): Drug screen negative. Consistent with viral process. Symptomatic treatment Tylenol/Advil, lozenges, gargling, Chloraseptic spray. Advise worsening Viral syndrome 09/11/2022 Assessment & Plan (09/11/2022 9:32 AM EDT): Modest congestion drainage with laryngitis pattern as well. Fairly notable and bothersome. Initiate prednisone as per prescription, otherwise saline spray, cool-mist humidifier, lozenges, gargling. Advised new onset fever or worsening Routine general medical exam ination at a health care facility 07/18/2022 Assessment & Plan (02/03/2025 12:46 PM EST): Last screening blood work 12/27/2023, with previous HIV and hepatitis C virus negative on 07/18/2022. In addition she had normal Pap smear 10/14/2020 by Alicia Villanueva, and repeat Pap smear with HPV both negative by Tenisha Garcia at [facility] 08/15/2023. Tdap given 04/26/2015. Flu vaccine up-to-date. Recommend maintaining COVID vaccination series. Pneumococcal 13 Valent vaccine given 10/14/2020, pneumococcal 20 valent vaccine given at age 63 on 12/27/2023. Mammogram normal 09/04/2024, monitor yearly. Cologuard normal 03/12/2024, and 03/06/2021. DEXA scan 01/06/2024 with osteoporosis pattern as per those details. Assessment & Plan (12/27/2023 9:25 AM EST): Last screening blood work 09/11/2022, ordered today 12/27/2023. In addition she had normal Pap smear 10/14/2020 by Alicia Villanueva, and repeat Pap smear with HPV both negative by Tenisha Garcia at [facility] 08/15/2023. Tdap given 04/26/2015. Flu vaccine up-to-date. Recommend maintaining COVID vaccination series. Pneumococcal 13 Valent vaccine given 10/14/2020, pneumococcal 20 valent vaccine given at age 63 on 12/27/2023. Mammogram normal 08/15/2023, monitor yearly. Cologuard normal 03/06/2021, 3-year repeat ordered 12/27/2023. DEXA scan ordered 12/27/2023. Assessment & Plan (07/18/2022 10:59 AM EDT): Screening blood work obtained today. In addition she had normal Pap smear 10/14/2020 by Alicia Villanueva, due October 2023. Tdap given 04/26/2015. COVID-vaccine x3 given, due for Moderna booster. Pneumococcal 13 Valent vaccine given 10/14/2020. Mammogram normal 07/02/2022, monitor yearly. Cologuard normal 03/06/2021, repeat in 3 years. Palpitations 07/18/2022 Assessment & Plan (02/03/2025 12:46 PM EST): Rare intermittent palpitations, with EKG today 12/25/2024 nonconcerning unchanged compared to 12/27/2023, 07/18/2022. Of note, she had overall fairly reassuring cardiac evaluation September [address] Elise at [facility] which showed some mild coronary disease but no intervention necessary based on catheterization. Assessment & Plan (12/27/2023 9:24 AM EST): Rare intermittent palpitations, with EKG today 12/27/2023 nonconcerning and unchanged compared to 07/18/2022. Of note, she had overall fairly reassuring cardiac evaluation September [address] Elise at [facility] which showed some mild coronary disease but no intervention necessary based on catheterization. Assessment & Plan (07/18/2022 10:53 AM EDT): Rare intermittent pattern, obtain EKG which is nonconcerning and unchanged compared to 2017 EKG. Consistent with normal variant pattern, advise any worsening. Pain in right shoulder 07/18/2022 Assessment & Plan (07/18/2022 10:53 AM EDT): Evaluated initially and detail 01/22/2021, felt more to be related to the lateral shoulder muscle strain, which has improved notably since that time. Good response to conservative management, physical therapy never necessary. Right upper quadrant pain 07/18/2022 Assessment & Plan (07/18/2022 10:57 AM EDT): Ischial evaluation 11/09/2019 with pattern consistent of biliary dyskinesia or reflux/gastritis pattern. Reevaluated with blood work 11/27/2021 occluding nonconcerning CBC, CMP, UA, lipase, GGT, H. pylori antigen the stool and anti- tissue transcutaneous antibody profile with IgA level, in addition to normal right upper quadrant ultrasound 11/27/2021. She ultimately agreed to HIDA scan as of 06/08/2022 which was normal with ejection fraction 53%. Doing better since, though suspicious for gastritis versus reflux pattern, which I discussed reflux precautions. If this recurs notably, plan gastroenterology referral. Seasonal allergic rhinitis due to pollen 022 Overview (07/18/2022): MILD ASTHMATIC RESPONSE Assessment & Plan (04/14/2025 12:14 PM EDT): Seasonal pattern with good response as needed use of Zyrtec and Flonase which she is using currently with benefit. We could consider adding montelukast in the future. Additional benefit of saline spray, nasal flushing. No new concerns as of 04/14/2025 Assessment & Plan (02/03/2025 12:46 PM EST): Seasonal pattern with good response as needed use of Zyrtec and Flonase which she is using currently with benefit. We could consider adding montelukast in the future. Additional benefit of saline spray, nasal flushing. No new concerns as of 12/25/2024. Assessment & Plan (06/26/2024 11:01 AM EDT): Seasonal pattern with good response as needed use of Zyrtec and Flonase which she is using currently with benefit. We could consider adding montelukast in the future. Additional benefit of saline spray, nasal flushing. Advise concerns. Assessment & Plan (04/21/2024 9:54 AM EDT): Seasonal pattern with good response as needed use of Zyrtec and Flonase which she is using currently with benefit. We could consider adding montelukast in the future. Additional benefit of saline spray, nasal flushing. Advise concerns. Assessment & Plan (12/27/2023 9:26 AM EST): Seasonal pattern with good response as needed use of Zyrtec and Flonase with some eustachian tube dysfunction August 2023 improving since. Additional benefit of saline spray, nasal flushing. We could consider adding montelukast in the future. Assessment & Plan (08/15/2023 11:41 AM EDT): Patient with longstanding history of seasonal allergic rhinitis, with infrequent flares. Currently having issues with dizziness, fluid levels noted behind bilateral TMs as well and swollen turbinates. She is asked to resume her daily antihistamine and Flonase dosing Trigeminal neuralgia 07/18/2022 Assessment & Plan (04/14/2025 12:14 PM EDT): Initially evaluated 09/09/2019 where she had a presentation describing an intermittent 5-10 min. electrical/sharp type pain pattern occurring approximately 2 times per day on average in the right lower more than upper jaw region. Referred to Dr. De Jesus in September 2019 who verified the same diagnosis, discussed potential desire to initiate Tegretol and she never pursued. Amitriptyline initially used for benefit her neurogenic pain, titrated to 50 mg in January 2021, and again 75 mg in July 2021 with ongoing benefit. She had been doing well as of 12/27/2023 visit we decrease amitriptyline from 75 mg down to 50 mg nightly and continues with benefit. Overall she does well with only with periodic neurogenic type shooting pain in that location but generally does well and would like to continue regimen unchanged. If she went a period where she had no flares at all we could consider weaning dose in the future. Of note related to unclear etiology in a presentation trigeminal neuralgia, she had a reassuring MRI of the head with and without contrast on 03/01/2021. No acute concerns as of 04/14/2025. Assessment & Plan (02/03/2025 12:46 PM EST): Initially evaluated 09/09/2019 where she had a presentation describing an intermittent 5-10 min. electrical/sharp type pain pattern occurring approximately 2 times per day on average in the right lower more than upper jaw region. Referred to Dr. De Jesus in September 2019 who verified the same diagnosis, discussed potential desire to initiate Tegretol and she never pursued. Amitriptyline initially used for benefit her neurogenic pain, titrated to 50 mg in January 2021, and again 75 mg in July 2021 with ongoing benefit. She had been doing well as of 12/27/2023 visit we decrease amitriptyline from 75 mg down to 50 mg nightly and continues with benefit. Overall she does well with only with periodic neurogenic type shooting pain in that location but generally does well and would like to continue regimen unchanged. Of note related to unclear etiology in a presentation trigeminal neuralgia, she had a reassuring MRI of the head with and without contrast on 03/01/2021. Assessment & Plan (06/26/2024 11:02 AM EDT): Initially evaluated 09/09/2019 where she had a presentation describing an intermittent 5-10 min. electrical/sharp type pain pattern occurring approximately 2 times per day on average in the right lower more than upper jaw region. Referred to Dr. De Jesus in September 2019 who verified the same diagnosis, discussed potential desire to initiate Tegretol and she never pursued. Amitriptyline initially used for benefit her neurogenic pain, titrated to 50 mg in January 2021, and again 75 mg in July 2021 with ongoing benefit. She had been doing well as of 12/27/2023 visit we decrease amitriptyline from 75 mg down to 50 mg nightly and continues with benefit. She does every once will get a little sharper twinge that it bothers her for minutes at a time and as such we will keep dose unchanged we could wean further in future as desired. Advise any breakthrough symptoms or return to previous dosing. Of note related to unclear etiology in a presentation trigeminal neuralgia, she had a reassuring MRI of the head with and without contrast on 03/01/2021. Assessment & Plan (04/03/2024 12:19 PM EDT): Initially evaluated 09/09/2019 where she had a presentation describing an intermittent 5-10 min. electrical/sharp type pain pattern occurring approximately 2 times per day on average in the right lower more than upper jaw region. Referred to Dr. De Jesus in September 2019 who verified the same diagnosis, discussed potential desire to initiate Tegretol and she never pursued. Amitriptyline initially used for benefit her neurogenic pain, titrated to 50 mg in January 2021, and again 75 mg in July 2021 with ongoing benefit. She had been doing well as of 12/27/2023 visit we decrease amitriptyline from 75 mg down to 50 mg nightly, and she continues to do well. If at follow-up she is doing well we can decrease further to 25 mg dosing. Advise any breakthrough symptoms or return to previous dosing. Of note related to unclear etiology in a presentation trigeminal neuralgia, she had a reassuring MRI of the head with and without contrast on 03/01/2021. Assessment & Plan (12/27/2023 9:27 AM EST): Initially evaluated 09/09/2019 where she had a presentation describing an intermittent 5-10 min. electrical/sharp type pain pattern occurring approximately 2 times per day on average in the right lower more than upper jaw region. Referred to Dr. De Jesus in September 2019 who verified the same diagnosis, discussed potential desire to initiate Tegretol and she never pursued. Amitriptyline initially used for benefit her neurogenic pain, titrated to 50 mg in January 2021, and again 75 mg in July 2021 with ongoing benefit. As she is doing well and has had no flare for quite a long while we will decrease amitriptyline to 50 mg nightly, and if at follow-up she is doing well we can decrease further to 25 mg dosing. Advise any breakthrough symptoms or return to previous dosing. Of note related to unclear etiology in a presentation trigeminal neuralgia, she had a reassuring MRI of the head with and without contrast on 03/01/2021. Assessment & Plan (08/15/2023 11:41 AM EDT): Initially evaluated 09/09/2019 where she had a presentation describing an intermittent 5-10 min. electrical/sharp type pain pattern occurring approximately 2 times per day on average in the right lower more than upper jaw region. Referred to Dr. De Jesus in September 2019 who verified the same diagnosis. Since that time she has utilized daily 75 mg amitriptyline with continued benefits. During initial evaluation she also had MRI of the head with and without contrast without abnormal findings Assessment & Plan (04/11/2023 10:36 AM EDT): Initially evaluated 09/09/2019 where she had a presentation describing an intermittent 5-10 min. electrical/sharp type pain pattern occurring approximately 2 times per day on average in the right lower more than upper jaw region. Referred to Dr. De Jesus in September 2019 who verified the same diagnosis, discussed potential desire to initiate Tegretol and she never pursued. Amitriptyline initially used for benefit her neurogenic pain, titrated to 50 mg in January 2021, and again 75 mg in July 2021 with ongoing benefit. She continues to do well and prefers to continue unchanged. Of note related to unclear etiology in a presentation trigeminal neuralgia, she had a reassuring MRI of the head with and without contrast on 03/01/2021. Assessment & Plan (07/18/2022 11:00 AM EDT): Initially evaluated 09/09/2019 where she had a presentation describing an intermittent 5-10 min. electrical/sharp type pain pattern occurring approximately 2 times per day on average in the right lower more than upper jaw region. Referred to Dr. De Jesus in September 2019 who verified the same diagnosis, discussed potential desire to initiate Tegretol and she never pursued. Amitriptyline initially used for benefit her neurogenic pain, titrated to 50 mg in January 2021, and again 75 mg in July 2021 with ongoing benefit. She continues to do well and prefers to continue unchanged. Of note related to unclear etiology in a presentation trigeminal neuralgia, she had a reassuring MRI of the head with and without contrast on 03/01/2021. Mixed hyperlipidemia 07/18/2022 Assessment & Plan (04/14/2025 12:13 PM EDT): 12/25/2024 total cholesterol 157, triglycerides 194, HDL 49, LDL 76. Comparison 12/27/2023 total cholesterol 151, triglyceride 234, HDL 47, LDL 80, 07/18/2022 total cholesterol 212, triglycerides 104, HDL 39, LDL 138, 03/01/2021 with total cholesterol 231, triglycerides 260, HDL 43, LDL 136. Based on cardiovascular history, she was placed on atorvastatin 40 mg daily, with good benefit. Continue unchanged. Continue healthy diet, exercise and benefits of even modest weight loss. Good stability as of 04/14/2025, advise any concerns. Assessment & Plan (02/03/2025 12:46 PM EST): 12/27/2023 total cholesterol 151, triglyceride 234, HDL 47, LDL 80. Comparison 07/18/2022 total cholesterol 212, triglycerides 104, HDL 39, LDL 138, 03/01/2021 with total cholesterol 231, triglycerides 260, HDL 43, LDL 136. Based on cardiovascular history, she was placed on atorvastatin 40 mg daily, with good benefit. Continue unchanged. Continue healthy diet, exercise and benefits of even modest weight loss. Recheck cholesterol pending with blood work 12/25/2024. Management per results. Orders: Comprehensive Metabolic Panel; Future Lipid Panel; Future Lipid Panel Comprehensive Metabolic Panel Assessment & Plan (06/26/2024 11:01 AM EDT): 12/27/2023 total cholesterol 151, triglyceride 234, HDL 47, LDL 80. Comparison 07/18/2022 total cholesterol 212, triglycerides 104, HDL 39, LDL 138, 03/01/2021 with total cholesterol 231, triglycerides 260, HDL 43, LDL 136. Based on cardiovascular history, she was placed on atorvastatin 40 mg daily, with good benefit. Continue unchanged. Continue healthy diet, exercise and benefits of even modest weight loss. Assessment & Plan (12/27/2023 9:18 AM EST): 07/18/2022 total cholesterol 212, triglycerides 104, HDL 39, LDL 138 with comparison 03/01/2021 with total cholesterol 231, triglycerides 260, HDL 43, LDL 136. She had been placed on atorvastatin 40 mg daily, and is to recheck today on 12/27/2023. Continue healthy diet, exercise and benefits of even modest weight loss. Assessment & Plan (08/15/2023 12:40 PM EDT): Patient currently taking atorvastatin 40 mg nightly. Last lipid panel showing total cholesterol of 212, triglycerides 104, HDL 39 and LDL 138. She is having lipids rechecked during regular follow-up with Dr. Barron next month Assessment & Plan (04/11/2023 10:35 AM EDT): 07/18/2023 total cholesterol 212, triglycerides 104, HDL 39, LDL 138 with comparison 03/01/2021 with total cholesterol 231, triglycerides 260, HDL 43, LDL 136. She has been placed on atorvastatin 40 mg daily, with blood work checked through cardiology in the last week or 2, have not yet received these results. Continue healthy diet, exercise and benefits of even modest weight loss. Assessment & Plan (07/18/2022 11:03 AM EDT): 03/01/2021 total cholesterol 231, triglycerides 260, HDL 43, LDL 136. Comparison cholesterol from 11/10/2019 with total cholesterol 243, triglycerides 181, HDL 47, LDL 160, previous 07/31/2017 with total cholesterol 233, triglycerides 243, HDL 49, LDL 135. Recommend healthy diet, exercise, recheck with cholesterol pending at this time. Encounters Date Type Department Care Team Description 07/29/2025 Telephone [facility] [address] [place], [place] [id number] Phill Barron MD from Last 3 Months Immunizations Immunization Administration Dates Next Due COVID-19 (MODERNA) 1st,2nd,3 rd Dose Monovalent 01/20/2021,12/22/2020 COVID-19 (MODERNA) Monovalen t Original Booster 10/17/2021 Fluzone (or Fluarix & Flulav al for VFC) >6mos 09/23/2023 Fluzone High-Dose 65+YRS 08/27/2024 Fluzone Quad >6mos (Multi-dose) 08/02/2022 Influenza TIV (IM) 08/03/2021, 0,08/24/2019,2017,07/26/2017 Influenza, Unspecified 08/03/2021 Pneumococcal Conjugate 13-Va lent (PCV13) 10/14/2020 Pneumococcal Conjugate 20-Va lent (PCV20) 12/27/2023 Tdap 07/26/2017 Family History Medical History Relation Name Comments No Known Problems Brother No Known Problems Daughter 1 No Known Problems Daughter 2 Stroke Father Jerman León COPD Mother Nichole León No Known Problems Paternal Grandfather No Known Problems Paternal Grandmother Lung cancer Sister 2 No Known Problems Sister 3 No Known Problems Sister 4 No Known Problems Sister 5 Relation Name Status Comments Brother Alive Daughter 1 Alive Daughter 2 Alive Father Jerman León (Age 66) Maternal Grandmother (Age 96) Mother Nichole León (Age 84) Paternal Grandfather IN HIS 80s Paternal Grandmother IN HER 80s Sister 1 (Age 64) Sister 2 (Age 65) Sister 3 Alive Sister 4 Alive Sister 5 Alive Social History Tobacco Use Types Packs/Day Years Used Date Smoking Tobacco: Never Smokeless Tobacco: Never Tobacco Cessation:Counseling Given: No Alcohol Use Standard Drinks/Week Comments Never 0 [...] on file Sexual Orientation Not on file Last Filed Vital Signs Vital Sign Reading Time Taken Comments Blood Pressure 126/68 04/14/2025 11:35 AM EDT Pulse 80 04/14/2025 11:35 AM EDT Temperature 36.6 C (97.8 F) 04/14/2025 11:35 AM EDT Respiratory Rate 12 04/07/2024 8:19 AM EDT Oxygen Saturation 97% 04/14/2025 11:35 AM EDT Inhaled Oxygen Concentration - - Weight 64.4 kg (142 lb) 04/14/2025 11:35 AM EDT Height 165.1 cm (5' 5 ) 01/08/2025 8:57 AM EST Body Mass Index 23.63 01/08/2025 8:57 AM EST Plan of Treatment Health Maintenance Due Date Last Done Comments COLON CANCER SCREENING 5 YEA R SIGMOIDOSCOPY [address] COLONOGRAPHY 2003 FECAL OCCULT BLOOD TEST 2003 FIT Testing (1 year) 2003 ZOSTER VACCINE (1 of 2) 2008 COVID-19 Vaccine (3 - Modern a risk series) 11/14/2021 10/17/2021, 01/20/2021, 12/22/2020 INFLUENZA VACCINE 07/02/2025 08/27/2024, , 08/02/2022, Additional history exists ANNUAL WELLNESS VISIT 12/25/2025 12/25/2024, 024 LIPID PANEL 12/25/2025 12/25/2024, 12/03, 07/18/2022 DXA SCAN 01/06/2026 01/06/2024 MAMMOGRAM 09/04/2026 09/04/2024, 08/02, 07/02/2022, Additional history exists COLOGUARD 03/12/2027 03/12/2024, 03/02, 03/10/2021, Additional history exists COLORECTAL CANCER SCREENING 03/12/2027 TDAP/TD VACCINES (2 - Td or Tdap) 07/26/2027 017 HEPATITIS C SCREENING Completed 07/18/2022 Pneumococcal Vaccine 50+ Completed 12/27/2023, 10/02 Procedures Procedure Name Priority Date/Time Associated Diagnosis Comments LIPID PANEL Routine 12/25/2024 11:50 AM EST Mixed hyperlipidemia SCANNED - MAMMO 09/04/2024 COLOGUARD Routine 03/12/2024 9:10 AM EDT Colon cancer screening DEXA BONE DENSITY AXIAL Routine 01/06/2024 Post-menopausal HEPATITIS C ANTIBODY Routine 07/18/2022 10:22 AM EDT Routine general medical examination at a [facility] care facility from Last 3 Months or Most Recently Relevant to Health Maintenance Results * (ABNORMAL) Lipid Panel (12/25/2024 11:50 AM EST) Total Cholesterol 157 100 - 199 mg/dL [facility] Triglycerides 194(H) 0 - 149 mg/dL [facility] HDL Cholesterol 49 >39 mg/dL [facility] VLDL Cholesterol Riley 32 5 - 40 mg/dL [facility] LDL Chol Calc (NIH) 76 0 - 99 mg/dL [facility] Blood 12/25/2024 11:5 0 AM EST 12/25/2024 Comment:Blood Release to pat jennifer Collier [facility] (AMBULATORY) - 12/26/2024 8:08 AM EST Performed at: 01 - [facility] [address] [place] [address], [place], [place] [id number] Education Professor: Marcellus Knight PhD, Phone: [phone] us Phill Barron MD LAB BLOOD ORDERABLES Final Resul t [facility] (AMBULATORY) [address] [place] [address], [facility] [address] [id number], * MAMMO Scan (09/04/2024) Anatomical Region Laterality Modality Other Phill Barron MD CHART REVIEW TABS Final Resul t * Cologuard - Stool, Per Rectum (03/12/2024 9:10 AM EDT) Cologuard Negative Negative 03/20/2024 6:29 PM EDT [facility] (CLIA #:[id number]) Comment: NEGATIVE TEST RESULT. A negative Cologuard result indicates a low likelihood that a colorectal cancer (CRC) or advanced adenoma (adenomatous polyps with more advanced pre-malignant features) is present. The chance that a person with a negative Cologuard test has a colorectal cancer is less than 1 in 1500 (negative predictive value >99.9%) or has an advanced adenoma is less than 5.3% (negative predictive value 94.7%). These data are based on a prospective cross-sectional study of 10,000 individuals at average risk for colorectal cancer who were screened with both Cologuard and colonoscopy. (Nate Donovan et al, N Engl J Med 2014;370(14):1052-4677) The normal value (reference range) for this assay is negative. COLOGUARD RE-SCREENING RECOMMENDATION: Periodic colorectal cancer screening is an important part of preventive healthcare for asymptomatic individuals at average risk for colorectal cancer. Following a negative Cologuard result, the [place] [employer] and U.S. Multi-Society Task Force screening guidelines recommend a Cologuard re-screening interval of 3 years. References: [place] [employer] Guideline for Colorectal Cancer Screening: https://www.cancer.org/cancer/ebred-kmqxqh-ohczbk/qbzwliuzb-zbtdkutfd-yhtncvi/ac s-rec ommendations.html.; Presley DK, Delilah CR, Mirela LevyK, Colorectal Cancer Screening: Recommendations for Physicians and Patients from the U.S. Multi-Society Task Force on Colorectal Cancer Screening , Am J Gastroenterology 2017; 112:9547-4886. TEST DESCRIPTION: Composite algorithmic analysis of stool DNA-biomarkers with hemoglobin immunoassay. Quantitative values of individual biomarkers are not reportable and are not associated with individual biomarker result reference ranges. Cologuard is intended for colorectal cancer screening of adults of either sex, 45 years or older, who are at average-risk for colorectal cancer (CRC). Cologuard has been approved for use by the U.S. FDA. The performance of Cologuard was established in a cross sectional study of average-risk adults aged 50-84. Cologuard performance in patients ages 45 to 49 years was estimated by sub-group analysis of near-age groups. Colonoscopies performed for a positive result may find as the most clinically significant lesion: colorectal cancer [4.0%], advanced adenoma (including sessile serrated polyps greater than or equal to 1cm diameter) [20%] or non- advanced adenoma [31%]; or no colorectal neoplasia [45%]. These estimates are derived from a prospective cross-sectional screening study of 10,000 individuals at average risk for colorectal cancer who were screened with both Cologuard and colonoscopy. (Nate Donovan et al, N Engl J Med 2014;370(14):6002-2868.) Cologuard may produce a false negative or false positive result (no colorectal cancer or precancerous polyp present at colonoscopy follow up). A negative Cologuard test result does not guarantee the absence of CRC or advanced adenoma (pre-cancer). The current Cologuard screening interval is every 3 years. ([place] [employer] and U.S. Multi-Society Task Force). Cologuard performance data in a 10,000 patient pivotal study using colonoscopy as the reference method can be accessed at the following location: www.[employer]/results. Additional description of the Cologuard test process, warnings and precautions can be found at www.[employer].com. Stool specimen (specimen) Specimen from rectum / Unknown 03/12/2024 9:10 AM EDT 03/13/2024 11:52 AM EDT us Phill Barron MD BODY FLUIDS AND STOOLS ORDERABLE S Final Result [facility] (CLIA #:[id number]) [address] [place] [address], * DEXA Bone Density Axial (01/06/2024) Anatomical Region Laterality Modality Wrist, Hip, L-spine N/A Radiographic Imaging Phill Barron MD IMG DXA ORDERABLES Final Result * Hepatitis C Antibody (07/18/2022 10:22 AM EDT) Hep C Virus Ab <0.1 0.0 - 0.9 s/co ratio [facility] Comment: Negative: < 0.8 Indeterminate: 0.8 - 0.9 Positive: > 0.9 HCV antibody alone does not differentiate between previous resolved infection and active infection. The CDC and current clinical guidelines recommend that a positive HCV antibody result be followed up with an HCV RNA test to support the diagnosis of acute HCV infection. [facility] offers Hepatitis C Virus (HCV) RNA, Diagnosis, RIDGE (635976) and Hepatitis C Virus (HCV) Antibody with reflex to Quantitative Real-time PCR ([id number]). Blood 07/18/2022 10:2 2 AM EDT 07/18/2022 Comment:Blood Manual Differe n Narrative [facility] ([facility] - 07/19/2022 7:06 AM EDT Performed at: 01 - [address] [id number] Education Professor: Marcellus Knight PhD, Phone: [phone] Phill Barron MD LAB BLOOD ORDERABLES Final Resul t [facility] [address] [place] [address], [facility] [address] [place] [address], from Last 3 Months or Most Recently Relevant to Health Maintenance Insurance MEDICARE ADVANTAGE PPO Advance Directives Documents on File Type Date Recorded 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
--- NOTE | 2025-09-24 08:15 | CT_ITS ---
FINAL REPORT TECHNIQUE: Noncontrast exam This study was performed with techniques to keep radiation doses as low as reasonably achievable, (ALARA). Individualized dose reduction techniques using automated exposure control or adjustment of mA and/or kV according to the patient''s size were employed. CLINICAL HISTORY: RLQ/right flank pain COMPARISON: none FINDINGS: Abdomen: Lung bases are clear. Liver, spleen, pancreas and adrenal glands have a normal CT appearance in their limited unenhanced state. The kidneys show no stone disease or obstruction. No obvious renal mass is present. No ureteral stones are present. Mild fecal impaction is noted. There is no evidence of bowel obstruction. Pelvis: The appendix is normal. Bladder is unremarkable. The uterus and ovaries are within normal limits. No fluid collection or adenopathy is seen. IMPRESSION: No acute findings. Reviewed, Interpreted and Dictated by Al Kendrick MD Transcribed by Irma Martin Authenticated and [facility]
--- NOTE | 2025-09-24 08:17 | HMH.EDGENADL ---
Discharge Plan Disposition Patient Disposition: Home, Self-Care Prescriptions Prescriptions: No Action amitriptyline 75 mg tablet 75 mg PO DAILY pantoprazole 40 mg tablet,delayed release (DR/EC) 40 mg PO DAILY Qty: 90 3RF atorvastatin [Lipitor] 40 mg tablet 40 mg PO DAILY Qty: 90 1RF aspirin 81 mg Capsule 81 mg PO DAILY Qty: 30 3RF Referrals Follow up/Referrals: Phill Barron MD [Primary Care Provider, Medical] - See instructions Activity Restrictions/Add. Instructions Additional Instructions/Restrictions: No emergent medical condition identified today however on your scan there is a very large stool burden in your ascending colon around your right lower quadrant which I believe is likely the cause of your symptoms. Please escalate MiraLAX as discussed starting with half a cap twice a day doubling the dose every 3 days until you are having the consistency of mashed potatoes and then stay on that dose indefinitely. Clinical Impressions Clinical Impression: Acute right flank pain, Constipation Instructions Patient Instructions: DI for Acute Abdominal Pain Print Language Print Language: Samoan Discharge ED Provider: Cam Young General Adult HPI General Chief complaint: Abdominal Pain Stated complaint: Right side pain Time Seen by Provider: 09/24/25 08:11 History of Present Illness HPI narrative: Patient is a previously healthy 64-year-old female presents today with sudden right lower quadrant and right sided abdominal pain. States it woke her up from sleep at 3 AM has been severe at times but also has been intermittently relaxing such as at the moment right now. She does state that her urine has been darker than normal recently. She has had 2 kidney stones in the past most recently 10 years ago does never have required surgical intervention. Denies any other symptoms at the moment. Still has her appendix and her ovaries. Related Data Home Medications ?Medication ?Instructions ?Recorded ?Confirmed amitriptyline 75 mg tablet 75 mg PO DAILY 09/17/22 10/12/24 Previous Rx's ?Medication ?Instructions ?Recorded aspirin 81 mg capsule 81 mg PO DAILY #30 caps 09/27/22 atorvastatin 40 mg tablet (Lipitor) 40 mg PO DAILY #90 tabs 07/23/23 pantoprazole 40 mg tablet,delayed 40 mg PO DAILY #90 tabs 10/12/24 release Allergies Allergy/AdvReac Type Severity Reaction Status Date / Time sulfamethoxazole (From Allergy Verified 10/12/24 08:40 Bactrim) trimethoprim (From Bactrim) Allergy Verified 10/12/24 08:40 [facility] Disclaimer: The information contained in this section may have been updated after the patient was seen, as this information can be updated by other users. Medical History Hyperlipidemia Coronary artery disease Diastolic dysfunction Trigeminal neuralgia of right side of face Surgical History Hx of cardiac cath Family History Sister Cancer Sister Cancer Father Stroke Hypertension Other Heart attack Social History Smoking Status: Never smoker alcohol intake: never substance use type: denies use current occupational status: retired Travel in the last 8 weeks?: Inside the [place] Have you lived/traveled outside US in past 30 days?: No Contact w/someone who lives/traveled outside US past 30 days?: No Exposure to someone with infectious disease in past 14 days?: No Do you have a fever (greater than 100.4 F or 38 C)?: No Have you tested positive for COVID-19?: No Exposed to someone with COVID-19 in past 14 days?: No Do you have a sore throat?: No Do you have a cough?: No Do you have any weakness?: No Do you have any diarrhea?: No Are you experiencing any unusual bleeding?: No Do you have any muscle aches/pain?: No Do you have any abdominal pain?: No Are you experiencing loss of taste or smell?: No Other Medical History Have you received the Flu Vaccine for this season: No Have you received the Pneumonia Vaccine: Yes ROS Obtained: Yes All systems reviewed & no additional complaints except as documented Physical Exam General General appearance: alert Respiratory Respiratory exam: Present normal lung sounds bilaterally Cardiovascular Cardiovascular exam: Present regular rate Abdominal Exam Abdominal exam: Present soft; Absent distention or tenderness Neurological Exam Neurological exam: Present alert and oriented X3 Medical Decision Making Medical Records Screening: Per USPSTF and CDC recommendations, given the prevalence of disease in our region, it is our hospital?s policy to screen for HIV and viral Hepatitis for all patients aged 18 and over and those with ongoing risk factors. [place] Inquiry Pt receiving controlled substance: No Vital Signs: 09/24/25 08:09 09/24/25 08:10 09/24/25 08:11 Temperature 98.2 F Temperature Source Oral Pulse Rate 93 H 90 Pulse Rate [Left Radial] 90 Respiratory Rate 16 Blood Pressure 142/107 H 152/100 H Blood Pressure [Right Arm] 142/107 H Blood Pressure Mean 117 Blood Pressure Mean [Right Arm] 118 02 Sat by Pulse Oximetry 99 99 100 Oxygen Delivery Method Room Air Room Air Room Air 09/24/25 08:35 Temperature Temperature Source Pulse Rate 85 Pulse Rate [Left Radial] Respiratory Rate Blood Pressure 203/121 H Blood Pressure [Right Arm] Blood Pressure Mean Blood Pressure Mean [Right Arm] 02 Sat by Pulse Oximetry 98 Oxygen Delivery Method Room Air Lab Data Lab results reviewed: Yes I reviewed the patient's lab results. Lab Results 09/24/25 08:15: WBC 10.4, RBC 4.39, Hgb 13.1, Hct 40.4, MCV 92.0, MCH 29.8, MCHC 32.4, RDW 12.9, Plt Count 212, MPV 9.3, Neut % (Auto) 34.0 L, Lymph % (Auto) 60.7 H, Schuyler % (Auto) 2.7, Eos % (Auto) 2.1, Baso % (Auto) 0.4, Neut # (Auto) 3.6, Lymph # (Auto) 6.3 H, Schuyler # (Auto) 0.3, Eos # (Auto) 0.2, Baso # (Auto) 0.0 09/24/25 08:16: Sodium 137, Potassium 4.0, Chloride 101, Carbon Dioxide 30, Anion Gap 10.0, BUN 13, Creatinine 0.70, Estimated Creat Clear 55, Estimated GFR 84, Est GFR ( Amer) 101, Glucose 99, Calcium 9.0, Total Bilirubin 0.6, AST 34, ALT 27, Alkaline Phosphatase 105, Total Protein 7.5, Albumin 4.4, Globulin 3.1, Albumin/Globulin Ratio 1.4 09/24/25 08:29: Urine Color Yellow, Urine Appearance Clear, Urine pH 7.5, Ur Specific [place] <= 1.005, Urine Protein Negative, Urine Glucose (UA) Negative, Urine Ketones Negative, Urine Blood Negative, Urine Nitrate Negative, Urine Bilirubin Negative, Urine Urobilinogen 0.2, Ur Leukocyte Esterase Negative, Urine RBC None, Urine WBC None, Ur Squamous Epith Cells Occasional, Urine Bacteria None 09/24/25 08:15 09/24/25 08:16 Orders (Tests/Meds): ED MEDICATIONS Discontinued Medications Generic Name Dose Route Start Last Admin Trade Name Liat PRN Reason Stop Dose Admin Lactated Ringer's 1,000 mls @ 999 mls/hr 09/24/25 08:15 09/24/25 08:51 Lactated Ringer's 1000 Ml Bag IV 09/24/25 09:15 999 mls/hr .Q1H1M CLARISSA Administration Ketorolac Tromethamine 15 mg 09/24/25 08:15 09/24/25 08:51 Ketorolac 30mg/Ml Vial IV 09/24/25 08:16 15 mg ONCE ONE Administration Ondansetron HCl 4 mg 09/24/25 08:15 09/24/25 08:51 Ondansetron 4mg/2ml Vial IV 09/24/25 08:16 4 mg ONCE ONE Administration ORDERS Category Date Time Status CT abdomen pelvis wo con Stat Cat Scan 09/24/25 08:15 Completed CBC w/Auto Diff [Complete Blood Count Auto Diff] Stat Lab 09/24/25 08:15 Results CMP [Comprehensive Metabolic Panel] Stat Lab 09/24/25 08:16 Completed HIV Combo Stat Lab 09/24/25 08:15 Received Hepatitis C Ab Qual. W/ RFX Stat Lab 09/24/25 08:15 Received UA [Urinalysis and Microscopic] Stat Lab 09/24/25 08:29 Completed Medical Decision Narrative: 64-year-old with above history and physical presents today with sudden right lower quadrant and intermittent abdominal pain. Differential includes ovarian torsion, kidney stone, perforated diverticulitis etc. Her abdominal exam is very benign which points to be more towards renal colic as an inflammatory condition would likely have significant tenderness. IV fluids pain medicine nausea medicine will be administered CT scan in addition to labs have been ordered and will reassess. Reassessment 9:34 AM patient has a benign exam on serial assessments CT scan performed which I personally interpreted shows no evidence of any intra-abdominal pathology that would explain patient's symptoms that are emergent however there is a very large amount of stool in the ascending colon which is likely the cause of the patient's symptoms radiology read suggest there is no acute pathology. Labs otherwise unremarkable. I discussed with the patient and escalation of MiraLAX. Patient's is at the bedside he states that she for a very long time goes sometimes 3 to 4 days without a bowel movement so he believes this is consistent with what I am saying. Patient will follow-up with primary care doctor or return to the emergency department any worsening symptoms. Critical Care Critical Care Time Critical Care Time: No
[2025-09-24 08:24] LABS: Hematocrit 40.4 % (37.0-47.0); Hemoglobin 13.1 g/dL (12.2-16.2); Immature Granulocytes % 0.1 %; Mean Corpuscular HGB Conc 32.4 g/dL (31.8-35.4); Mean Corpuscular Hemoglobin 29.8 pg (27.0-31.2); Mean Corpuscular Volume 92.0 fl (81-99); Nucleated Red Blood Cells % 0 %; Platelet Count 212 K/mm3 (142-424); Red Blood Count 4.39 M/mm3 (4.20-5.40); Red Cell Distribution Width-SD 43.7 fL; White Blood Count 10.4 K/mm3 (4.8-10.8)
[2025-09-24 08:30] LABS: Albumin Level 4.4 g/dl (3.5-5.0); Chloride 101 mmol/L (98-107); Sodium 137 mmol/L (136-145)
[2025-09-24 08:31] LABS: Potassium 4.0 mmoL/L (3.5-5.1)
[2025-09-24 08:33] LABS: Microscopic, Urine URINE MICROSCOPIC (MICROSCOPIC)
[2025-09-24 08:33] LABS: Alanine Aminotransferase 27 U/L (12-78); Albumin/Globulin Ratio 1.4 (1.1-1.8); Alkaline Phosphatase 105 U/L (38-126); Anion Gap 10.0 mEq/L (5-15); Aspartate Amino Transferase 34 U/L (14-36); Bilirubin,Total 0.6 mg/dl (0.2-1.3); Blood Urea Nitrogen 13 mg/dl (7-17); Carbon Dioxide 30 mmol/L (22.0-30.0); Creatinine Clearance Estimated 55 mL/min (50-200); Creatinine,Serum 0.70 mg/dl (0.52-1.04); Estimated Glomerular Filt Rate 84 ml/min (>60); GFR (African American) 101 ML/MIN (>60); Globulin 3.1 g/dL (1.3-3.2); Glucose 99 mg/dl (74-100); Total Protein,Serum 7.5 g/dl (6.3-8.2)
[2025-09-24 08:34] LABS: Calcium 9.0 mg/dl (8.4-10.2)
[2025-09-24 08:51] LABS: Bilirubin,Urine Negative (Negative); Color,Urine YELLOW (Yellow); Glucose,Urine (UA) Negative (Negative); Ketones,Urine Negative (Negative); Leukocyte Esterase,Urine Negative (Negative); PH,Urine 7.5 (5.0-8.5); Protein,Urine Negative (Negative); Specific Gravity, Urine <= 1.005 (1.005-1.030); Urobilinogen,Urine 0.2 EU/dl (0.2)
[2025-09-24] MEDS: LACTATED RINGERS 1000ML 1,000 ML 999 ML IV (08:51)
[2025-09-24] MEDS: ONDANSETRON 4MG/2ML VIAL 4 MG IV (08:51)
[2025-09-24] MEDS: KETOROLAC 30MG/ML VIAL 15 MG IV (08:51)
[2025-09-24 09:14] LABS: Squamous Epithelial Cell,Urine Occasional #/hpf (0-5)
[2025-09-24 09:34] LABS: RBC Morphology Normal; Total Cells Counted 100
[2025-09-24 10:30] LABS: Hepatitis C Ab Qual. W/ RFX NEGATIVE (Negative)
== END 2025-09-24 09:51 | disposition home or self-care (01) ==
PROVIDERS: Emergency Provider Student in an Organized Health Care Education/Training Program; PCP Pediatrics
DX: R10.31 Right lower quadrant pain (principal); R10.A1 Flank pain, right side; K59.00 Constipation, unspecified; Z87.442 Personal history of urinary calculi
CPT/HCPCS: 74176; 80053; 81001; 85007; 85025; 86803; 87389; 96361; 96374; 96375; 99285; J1885; J2405; J7120